=== PATIENT | female | born 1940 | race Caucasian/White ===

== ENCOUNTER 2019-06-08 08:17 | Day surgery (SDC) | payer MEDICARE, BC ==
[2019-06-08] MEDS ORDERED: ceFAZolin SODIUM 1 GM VIAL ONE (08:48)
[2019-06-08] MEDS ORDERED: LIDOCAINE HCL 2% PF 100MG/5ML VIAL IJ ONE (08:48)
[2019-06-08] MEDS ORDERED: SEVOFLURANE 250 ML LIQUID IH ONE (08:48)
[2019-06-08] MEDS ORDERED: SUGAMMADEX SODIUM 200 MG/2 ML VIAL IV ONE (08:48)
[2019-06-08] MEDS ORDERED: PHENYLEPHRINE HCL 10 MG/1 ML ONE (08:48)
[2019-06-08] MEDS ORDERED: FAMOTIDINE 20 MG/2 ML VIAL IV ONE (08:48)
[2019-06-08] MEDS ORDERED: BUPIV. HCL 0.5% (5MG/ML)/EPI. (1:200,000) PF 30 ML VIAL IJ ONE (08:48)
[2019-06-08] MEDS ORDERED: THROMBIN (BOVINE) 5,000 UNIT VIAL TP ONE (08:48)
[2019-06-08] MEDS ORDERED: LEVALBUTEROL NEB 1.25 MG/3 ML VIAL.NEB NEB ONE (08:48)
[2019-06-08] MEDS ORDERED: GLYCOPYRROLATE 0.2 MG/1 ML 1 ML ONE (08:48)
[2019-06-08] MEDS ORDERED: LABETALOL HCL 20 MG/4 ML SYRINGE IV ONE (08:48)
[2019-06-08] MEDS ORDERED: ONDANSETRON HCL/PF 4 MG/ 2ML VIAL ONE (08:48)
[2019-06-08] MEDS ORDERED: PROPOFOL 200 MG/20 ML VIAL IV ONE (08:48)
[2019-06-08] MEDS ORDERED: DEXAMETHASONE SODIUM PHOSPHATE 10 MG/ML VIAL ONE (08:48)
[2019-06-08] MEDS ORDERED: GELATIN SPONGE,ABSORB/PORCINE (SIZE 100) 1 EACH SPONGE TP ONE (08:48)
[2019-06-08] MEDS ORDERED: LACTATED RINGERS 1,000 ML IV.SOLN IV ONE ×2 (08:48)
[2019-06-08] MEDS ORDERED: ROCURONIUM BROMIDE 10 MG/ML 5ML VIAL ONE (08:48)
--- NOTE | 2019-06-13 14:16 | Operative Note ---
PREOPERATIVE DIAGNOSIS: 1. Herniated nucleus pulposus, right side L5-S1. 2. Degenerative disc disease, L4-5 and L5-S1. 3. Smaller herniated nucleus pulposus, L4-5. 4. Morbid obesity. 5. Cardiac history. POSTOPERATIVE DIAGNOSIS: 1. Herniated nucleus pulposus, right side L5-S1. 2. Degenerative disc disease, L4-5 and L5-S1. 3. Smaller herniated nucleus pulposus, L4-5 and L5-S1. 4. Morbid obesity. 5. Cardiac history. PROCEDURES PERFORMED: 1. Right side laminotomy with foraminotomy and partial facetectomy, L5. 2. Excision of herniated nucleus pulposus, L5-S1. 3. Intraoperative fluoroscopy and interpretation for needle placement. 4. Use of operating microscope and microsurgical technique. SURGEON: Emmanuel Latif Jr., M.D. ASSISTANT FIELD HOCKEY COACH: None. ANESTHESIA: General. COMPLICATIONS: None. CONDITION FOLLOWING THE PROCEDURE: Good. OPERATIVE FINDINGS: This patient was prolonged to be surgically positioned due to cardiovascular instability after administration of general anesthetic. This and morbid obesity are complicating factors in this patients case and a 7 to 8 mm tubular retractor had to be used which is quite long and deep. A herniated nucleus pulposus was identified and through a vertical incision was excised. Loose nuclear material was removed and that was all. Palpation of the neural foramen and the central canal documented with the Moreno probe that there was adequate spinal reserve capacity restored following decompression and discectomy. DESCRIPTION OF PROCEDURE: The patient is taken to the operating room and general anesthetic induced. The patient was placed in the prone position and the back was thoroughly scrubbed, sterilely prepped and draped. C-arm fluoroscopy was brought into position to identify the surgical level. A Tuohy needle was then placed adjacent to the paraspinous process of the lumbar spine and driven down to the base of the posterior spinous process. X-rays were taken to confirm vertical direction of the needle and identification of the L5 level for surgical care. When the Touhy needle was found to be placed and replaced in the ideal position, skin cheney were made and the skin was infiltrated with 0.5% Marcaine with epinephrine. A 2-cm transverse incision was then made adjacent to the affected side of the lumbar spine at the affected level. The scalpel blade was then inserted through the subcutaneous tissue and, in a vertical direction, the lumbar fascia was incised through the transverse incision of the skin. Next, the smallest obturator for the cylindrical retractor set was inserted into the skin and through the division of the lumbar fascia down to the palpable inferior aspect of the lamina of the affected level. This was followed by progressive dilators and ended with a cylindrical retractor being placed down to the affected lamina. Its accurate placement was again confirmed radiographically by AP and lateral x-rays intraoperatively. The dilators were then removed, leaving the cylindrical retractor in place at the desired surgical level. High power magnification was then brought into the surgical field and utilized through the cylindrical retractor for the following microsurgical technique application and dissection. The thin muscular cuff remaining over the lamina was removed with a combination of pituitary rongeurs and electrocautery to control hemostasis. Typically, both monopolar and bipolar electrocautery are used for this purpose. The inferior aspect of the lamina then received a [place] retractor and C-arm fluoroscopy was again brought into position to confirm medial placement and visualization of the lamina as well as to reconfirm the affected level is accurately identified for the surgical procedure to follow. Once this was confirmed, a high-speed timbo was inserted and the posterior aspect of the lamina and base of the posterior spinous process began to be thinned down until just passing through the anterior aspect of the lamina, thus both visualizing and palpating the thick ligamentum flavum over the dural sac. There was deemed to be adequate exposure over the area affected for surgery and resection with the high-speed timbo continued until well above the superior margin of the disc space. A combination of 2- and 3-mm Kerrison rongeurs were then used to remove the remaining thin wisp of anterior lamina and portions of the posterior spinous process until there was wide exposure in the desired area for surgical care. The ligamentum flavum was then freed from the superior margin which was identified by the initiation of bleeding, marking the origin of the ligamentum flavum superiorly. The ligamentum flavum was from the lamina at this point and reflected inferiorly. Kerrison rongeurs were then used to resect all of the ligamentum flavum, exposing the dural sac. Using the Kerrison rongeurs, the foraminotomy was performed on the surgical side until there was adequate room as demonstrated by passage of the Moreno probe into the neural foramen. This required a resection of bony spicules, osteophytes, and hypertrophic ligamentum flavum within the spinal canal and neural foramen to confirm adequate relief of the exiting nerve root as well as the nerve root passing by the axilla, destined for next level emergence. A combination of bipolar electrocautery, Gelfoam and thrombin were used to control hemostasis as needed. Attention was directed in the opposite direction toward the opposite side of the spinal canal and ligamentum flavum was resected from the anterior aspect of the lamina on the opposite side to provide additional central decompression. At this point, thrombin was placed directly on the dura and allowed to remain for one minute, and then the excess removed. This was followed by a small piece of Gelfoam which covered the laminotomy site, which had been soaked in thrombin. The cylindrical tract was then gradually removed and any area of hemorrhage received electrocautery treatment. The lumbar fascia was then approximated with 0-Vicryl and a subcuticular closure of the subcutaneous and skin was then approximated with Steri-Strips. 15 cc of 0.5% Marcaine with epinephrine was then instilled into the muscular tissue and subcutaneous layer at all four quadrants of the incision to aid in postoperative analgesia. A dressing was applied and the patient was then taken to the recovery room in good condition. It is noteworthy that, during the procedure, the annulus was penetrated with a Steinmann pin and a combination of Connie curettes and pituitary rongeurs were used to affect a discectomy and removal of any posterior osteophytes that needed to be addressed in the area of the surgical procedure. EMMANUEL LATIF JR., M.D. LINDSAY/oneil (Please copy [facility] provider when applicable) Job #[id number] [place]
== END 2019-06-08 13:20 | disposition home or self-care (01) ==
LOC: OPSURG 08:17
PROVIDERS: ATTEND Orthopaedic Surgery
DX: M51.36 Other intervertebral disc degeneration, lumbar region (principal); E66.01 Morbid (severe) obesity due to excess calories
CPT/HCPCS: 63030; J0690; J2001; J2370; J2405; J2704; J3490; J7614; J7120

== ENCOUNTER 2019-09-25 11:24 | Outpatient (CLI) | payer MEDICARE, BC ==
[~2019-09-25 11:24] MED LIST: IOHEXOL 300 MG/ML BOTTLE 50 ML ONE; Lidocaine 1% 5ml 10 MG/ML VIAL ONE; TRIAMCINOLONE ACETONID 40MG/ML VIAL ONE
--- NOTE | 2019-09-27 11:21 | Operative Note ---
PROCEDURE DATE: 09/25/2019 PREOPERATIVE DIAGNOSES: 1. Right hip pain, right trochanteric bursitis. 2. Lumbosacral radiculopathy and foraminal stenosis. POSTOPERATIVE DIAGNOSES: 1. Right hip pain, right trochanteric bursitis. 2. Lumbosacral radiculopathy and foraminal stenosis. PROCEDURE(S) PERFORMED: Right trochanteric bursa injection under fluoroscopic guidance. SURGEON: Brodie Mccauley M.D. ANESTHESIA: Local. INDICATION FOR PROCEDURE: 79-year-old white female who has a history of a lumbar foraminal disc decompression 3 months ago who has persistent right hip pain. She presents today for diagnostic right trochanteric bursa injection. On examination the patient is alert and oriented, in no acute distress. She walks with an antalgic gait, favoring her right lower extremity. Tenderness to palpation along the right trochanteric region. No obvious motor or sensory deficits. The risks and benefits of the procedure were explained to the patient including but not limited to the possibility of weakness, paresthesias. The patient verbalized appropriate understanding of the risks and agreed to proceed. DESCRIPTION OF PROCEDURE: The patient was taken to the fluoroscopy suite and placed in the left lateral decubitus position. The back and right hip area was prepped and draped in a normal fashion. Under fluoroscopic guidance one 25 gauge 3-1/2 inch needle was placed just to the right of the mid trochanteric bursa. Isovue 300M contrast was injected, 3 mL, and there was spread along the right trochanteric bursa area. There was no spread along the sciatic outflow tract. Following which time 40 mg of triamcinolone diacetate together with 2 mL of 2% lidocaine was injected along the right trochanteric bursa. The patient tolerated the procedure well without side effects. She was recovered for an appropriate time in the recovery area. She was discharged to follow up as directed with the patients primary care physician. BRODIE MCCAULEY M.D. (Please copy [facility] provider when applicable) [facility] JOB#: [id number] MTDD
== END 2019-09-25 12:18 | disposition home or self-care (01) ==
LOC: OUT 11:24
PROVIDERS: ATTEND Anesthesiology Pain Medicine
DX: M70.61 Trochanteric bursitis, right hip (principal); M54.16 Radiculopathy, lumbar region; M48.061 Spinal stenosis, lumbar region without neurogenic claudication
CPT/HCPCS: 20610; 77002; J3301